=== PATIENT | female | born 1980 | race Caucasian/White ===

== ENCOUNTER 2017-06-19 16:47 | Emergency (ER) | payer OTHER ==
[~2017-06-19] VITALS: Ht 167.6 cm; Wt 92.0 kg
[2017-06-19 16:48] VITALS: BP 132/84; PULSE 113; RESP 16; TEMP 98.9; O2SAT 98
--- NOTE | 2017-06-19 18:18 | PD ---
HPI Chief Complaint: Cold / Flu Symptoms Time Seen by Provider: 18:18 Travel History International Travel<30 days: No Contact w/Intl Traveler<30days: No Traveled to known affect area: No History of Present Illness HPI 36-year-old female presents to the emergency Department with complaint of nasal congestion, sore throat, right ear pain, headache, sinus pressure 3 days. Denies fevers. Reports chills. Reports body aches. Denies cough, chest pain, shortness of breath, abdominal pain, vomiting. Denies lump in throat, difficulty swallowing, unusual drooling. Reports painful swallowing. Has been taking ibuprofen for symptom management. Rates pain 8/10. Describes as an aching sensation and a burning sensation in her throat. Has not received her influenza vaccination. No known aggravating or relieving factors. No one else with similar symptoms. Allergies to penicillins. Has no other medical complaints. No other modifying factors or associated signs and symptoms. PFSH Past Medical History ?: Not Past Surgical History Hysterectomy: Yes (PARTIAL) Social History Tobacco Use: No Allergies-Medications (Allergen,Severity, Reaction): Coded Allergies: Penicillins (Verified Allergy, Unknown, 06/19/17) Review of Systems Except as stated in HPI: all other systems reviewed are Neg Physical Exam Narrative GENERAL: Well-nourished, well-developed female patient, in no acute distress; afebrile, nontoxic-appearing SKIN: Warm and dry. No rash. HEAD: Atraumatic. Normocephalic. EYES: Pupils equal and round. No scleral icterus. No injection or drainage. ENT: Mucosa pink and moist. Oropharynx with erythema; without edema or exudates. No uvular edema. No uvular, palatal, or tonsillar deviation. Airway patent. EARS: Bilateral pinnae and external canals appear within normal limits. Bilateral tympanic membranes without erythema, dullness or perforation. NECK: Trachea midline. One Palpable lymph node to the right posterior cervical chain. CARDIOVASCULAR: Regular rate and rhythm. No murmur appreciated. RESPIRATORY: No accessory muscle use. Clear to auscultation. Breath sounds equal bilaterally. No retractions or tachypnea. GASTROINTESTINAL: Abdomen soft, non-tender, nondistended. Hepatic and splenic margins not palpable. Bowel sounds are active 4 quadrants. MUSCULOSKELETAL: No obvious deformities. No clubbing. No cyanosis. No edema. NEUROLOGICAL: Awake and alert. Oriented 3. No obvious cranial nerve deficits. Motor grossly within normal limits. Normal speech. Moves all extremities. 5/5 strength to all extremities. PSYCHIATRIC: Appropriate mood and affect; insight and judgment normal. Data Data Last Documented VS Vital Signs Date Time Temp Pulse Resp B/P (MAP) Pulse Ox O2 Delivery O2 Flow Rate FiO2 06/19/17 16:48 98.9 113 16 132/84 (100) 98 Orders Orders Influenzae A/B Antigen (06/19/17 18:17) Group A Rapid Strep Screen (06/19/17 18:17) Ibuprofen (Motrin) (06/19/17 18:30) Strep Culture (Group A) (06/19/17 18:22) MDM Medical Decision Making Medical Screen Exam Complete: Yes Emergency Medical Condition: Yes Medical Record Reviewed: Yes Differential Diagnosis Strep pharyngitis, influenza, upper respiratory infection, sinusitis, viral illness Narrative Course 36-year-old female with cold/flu symptoms and sore throat. He is afebrile and nontoxic appearing. Denies fever, vomiting. Physical exam is unremarkable other than erythema noted to the oropharynx. Ibuprofen administered in the ER. Rapid strep and influenza ordered. 1900: Influenza and rapid strep negative. Patient requesting antibiotics for home. Azithromycin prescribed for home. Instructed patient to follow up with primary care provider. Patient verbalizes understanding and agreement with treatment plan. Patient is medically cleared and stable for discharge. Discussed reasons to return to the emergency department. Patient agrees with treatment plan. The patients vital signs are stable and the patient is stable for outpatient follow-up and treatment. Patient discharged home, stable and in no acute distress. Diagnosis Primary Impression: URI (upper respiratory infection) Qualified Codes: J06.9 - Acute upper respiratory infection, unspecified Referrals: [facility] Primary Care Physician Patient Instructions: Cold Symptoms (ED), General Instructions, Sinusitis (ED) , Upper Respiratory Infection (ED) Departure Forms: Tests/Procedures, Work Release Enter return to work date: Jun 21, 2017 Additional Instructions: Ibuprofen or Tylenol as instructed and as needed for fever/pain [id number] cough and cold medications as directed and as needed for symptom management Get plenty of sleep/rest Drink plenty of fluids to prevent dehydration; popsicles and Gatorade Use an air humidifier/turn off ceiling fans Follow-up with primary care provider Return immediately to the emergency department with worsening of symptoms Med/Other Pt SpecificInfo: Prescription(s) given Scripts Azithromycin (Azithromycin) 500 Mg Tab 500 MG PO DAILY for Infection, #5 TAB 0 Refills Prov: Jackelyn Salvador 06/19/17 Disposition: 01 DISCHARGE HOME Condition: Stable Jackelyn Salvador Jun 19, 2017 18:18
[2017-06-19] MEDS ORDERED: IBUPROFEN 800 MG TAB PO ONE (18:30)
[2017-06-19] MEDS ORDERED: AZIT500T2 PO (18:59)
== END 2017-06-19 19:00 | disposition home or self-care (01) ==
LOC: NEPK 16:47
DX: J06.9 Acute upper respiratory infection, unspecified (principal); J02.9 Acute pharyngitis, unspecified; H92.01 Otalgia, right ear
CPT/HCPCS: 87081; 87804; 87880; 99283